=== PATIENT | female | born 1940 | race Two or more races ===

== ENCOUNTER 2018-04-25 06:07 | Inpatient (IN) | payer MEDICARE, OTHER ==
[~2018-04-25] VITALS: Ht 162.6 cm; Wt 73.5 kg
--- NOTE | 2018-04-25 06:10 | NUR ---
Pt bib LAFD d/t dizziness, N/V. Pt lives at home with daughter and son-in-law, has been getting chemo x 18 months for ovarian CA. pt has hx of DM and HTN. She is A, O/4, moves extremities with some assistance, breathing spontaneously to RA. Appears anxious at this time, teary eyed statting "I am no good." Evaluated by Dr. Teague and BS with orders.
[2018-04-25] MEDS ORDERED: ONDANSETRON HCL/PF 4 MG/2 ML VIAL ONE (06:28)
[2018-04-25] MEDS ORDERED: ACETAMINOPHEN 325 MG TABLET ONE (06:29)
[2018-04-25] MEDS ORDERED: IV NS 0.9% 1,000 ML BAG IV ONE ×2 (06:30)
[2018-04-25] MEDS ORDERED: ONDANSETRON HCL/PF 4 MG/2 ML VIAL IVP ONE (06:30)
[2018-04-25] MEDS ORDERED: ACETAMINOPHEN 325 MG TABLET PO ONE (06:30)
--- NOTE | 2018-04-25 06:30 | NUR ---
IV g20 left lower FA started, labs drawn, IV fluids initiated.
[2018-04-25 06:47] LABS: BASOPHILS % (AUTO) 1.1 % (0.0-2.0); EOSINOPHILS % (AUTO) 1.2 % (0.0-6.0); HEMATOCRIT 29 % (33-45); HEMOGLOBIN 9.9 g/dL (11.5-14.8); LYMPHOCYTES # (AUTO) 0.4 /CMM (0.8-4.8); LYMPHOCYTES % (AUTO) 10.4 % (20.0-44.0); MEAN CORPUSCULAR HGB CONC 35 g/dl (31.0-36.0); MEAN CORPUSCULAR VOLUME 90 fL (82-100); MONOCYTES # (AUTO) 0.5 /CMM (0.1-1.30); MONOCYTES % (AUTO) 14.3 % (2.0-12.0); NEUTROPHILS # (AUTO) 2.6 /CMM (1.8-8.9); PLATELET COUNT (AUTO) 235 /CMM (150-450); RED BLOOD CELL COUNT(AUTO) 3.17 MIL/uL (4.0-5.2); WHITE BLOOD COUNT (AUTO) 3.6 K/uL (4.3-11.0)
--- NOTE | 2018-04-25 06:50 | NUR ---
Pt transported to Radiology for CT Head
[2018-04-25 06:58] LABS: CALCIUM, SERUM 9.1 mg/dL (8.5-10.1); CARBON DIOXIDE 22 mmol/L (21-32); CHLORIDE 101 mmol/L (98-107); CREATININE 0.8 mg/dL (0.6-1.3); GLUCOSE 268 mg/dL (74-106); POTASSIUM 4.1 mmol/L (3.5-5.1); SODIUM SERUM 137 mmol/L (136-145); UREA NITROGEN, BLOOD 10 mg/dL (7-18)
--- NOTE | 2018-04-25 07:05 | NUR ---
pt came back from Radiology, family in room
[2018-04-25 07:08] LABS: APPEARANCE,URINE CLEAR (CLEAR); BILIRUBIN,URINE NEGATIVE (NEGATIVE); BLOOD, URINE NEGATIVE Ery/uL (NEGATIVE); COLOR,URINE YELLOW (YELLOW); KETONES,URINE 1+ (NEGATIVE); LEUKOCYTE ESTERASE ,URINE NEGATIVE (NEGATIVE); NITRITE, URINE NEGATIVE (NEGATIVE); PROTEIN,URINE NEGATIVE (NEGATIVE); UGLUCOSE NEGATIVE (NEGATIVE)
[2018-04-25 07:14] LABS: ALANINE AMINOTRANSFERASE 15 U/L (12-78); ALBUMIN 2.8 g/dL (3.4-5.0); ALKALINE PHOSPHATASE 69 U/L (46-116); ASPARTATE AMINOTRANSFERASE 23 U/L (15-37); BILIRUBIN,DIRECT 0.2 mg/dL (0.0-0.2); BILIRUBIN,TOTAL 0.6 mg/dL (0.2-1.0)
--- NOTE | 2018-04-25 07:25 | NUR ---
Pt states she feels better, family at BS. Report given to CHARITY Álvarez, for JANIS
--- NOTE | 2018-04-25 07:40 | NUR ---
RECEIVED PT FROM CHARITY PERALTA FOR JANIS, PT IS AOX4 ARMMIKEN SPEAKING, NOT IN RESPIRATORY DISTRESS, V/S STABLE, KEPT RESTED AND COMFORTABLE, WILL CONTINUE TO MONITOR.
[2018-04-25] MEDS ORDERED: CEFEPIME 1 GM in IV D5W 50 ML IV ONE (08:00)
[2018-04-25] MEDS ORDERED: VANCOMYCIN 1 GM in IV D5W 250 ML IV ONE (08:00)
--- NOTE | 2018-04-25 08:06 | NUR ---
PANEL ON-CALL PAGED
[2018-04-25] MEDS ORDERED: INSU100I4 SQ (09:39)
[2018-04-25] MEDS ORDERED: ALPR0.5T8 PO (09:39)
[2018-04-25] MEDS ORDERED: INSU100I26 SQ (09:39)
[2018-04-25] MEDS ORDERED: CLON0.2T PO (09:39)
[2018-04-25] MEDS ORDERED: TRAM50TA2 PO (09:39)
[2018-04-25] MEDS ORDERED: OMEP20CA10 PO (09:39)
--- NOTE | 2018-04-25 09:50 | NUR ---
GIVE REPORT TO CHARITY ALVAREZ FOR JANIS, IV FLUID AND ANTIBIOTIC STILL INFUSING, PT IS AOX4, NOT IN RESPIRATORY DISTRESS, KEPT RESTED AND COMFORTABLE.
--- NOTE | 2018-04-25 10:00 | NUR ---
MS RN RECEIVED ON BED,AWAKE,ALERT,ORIENTED X 3,SWEDISH SPEAKING ONLY,NOT IN ANY FORM OF DISTRESS,RESPIRATIONS EVEN AND UNLABORED,NO SOB NOTED, LUNGS ARE CLEAR,ABDOMEN SOFT,POSITIVE BOWEL SOUNDS,DENIES PAIN A THIS TIME,WILL MONITOR PATIENT'S CONDITION.
[2018-04-25 10:30] VITALS: BP 142/65
--- NOTE | 2018-04-25 11:30 | NUR ---
MS RN PAGED KRISHAN ANDERSON FOR ORDERS, WILL PUT JUST FEED PATIENT RIGHT NOW.
[2018-04-25 12:00] VITALS: BP 125/69
[2018-04-25 16:00] VITALS: BP 144/71
--- NOTE | 2018-04-25 17:00 | NUR ---
MS CHARITY NICKERSON CAME TO SEE PATIENT,NO ORDERS YET.
--- NOTE | 2018-04-25 18:25 | NUR ---
MS RN TEXT KRISHAN AGAIN FOR ORDERS.
--- NOTE | 2018-04-25 18:40 | NUR ---
MS RN PATIENT HAS FEVER 100.2, TEXT KRISHAN FOR ORDERS, SAID THAT HE IS WORKING ON IT.
--- NOTE | 2018-04-25 19:46 | NUR ---
CUSTOMER LOGISTICS MANAGER NOTE: RECEIVED PT IN STABLE CONDITION WITH VS STABLE. A&O X4 GREEK SPEAKING. SON WAS AT BEDSIDE TO TRANSLATE. SAFETY MEASURES IN PLACE: BED IN LOWEST POSITION, UPPER BED RAILS UP X2, AND CALL LIGHT WITHIN REACH. STILL WAITING FOR ORDERS FROM MD, WILL F/U AND CONT. TO MONITOR PT.
[2018-04-25 20:00] VITALS: BP 132/54
[2018-04-25] MEDS ORDERED: TRAMADOL HCL 50 MG TABLET PO PRN (20:00)
[2018-04-25] MEDS ORDERED: Z GUARD REMEDY 2 OZ OINT TP PRN (20:00)
[2018-04-25] MEDS ORDERED: ZOLPIDEM TARTRATE 5 MG TABLET PO PRN (20:00)
[2018-04-25] MEDS ORDERED: DEXTROSE 50%-WATER 50 ML DISP.SYRIN IV PRN (20:00)
[2018-04-25] MEDS ORDERED: ONDANSETRON HCL/PF 4 MG/2 ML VIAL IVP PRN (20:00)
[2018-04-25] MEDS ORDERED: HYDROCODONE/APAP 10/325MG 1 EA TABLET PO PRN (20:00)
[2018-04-25] MEDS ORDERED: ALPRAZOLAM 0.5 MG TABLET PO PRN (20:00)
[2018-04-25] MEDS ORDERED: FEE PK DOSING 1 MIN EA MC ONE (20:17)
[2018-04-25] MEDS: IV NS 0.9% 1,000 ML IV PRN (20:30)
[2018-04-25] MEDS: ACETAMINOPHEN 325 MG TABLET PO PRN (20:31)
[2018-04-25] MEDS: CEFTRIAXONE 1 G in IV D5W 50 ML IV SCH (20:31)
--- NOTE | 2018-04-25 20:31 | NUR ---
MS RN NOTE TYLENOL 650 MG GIVEN FOR FEVER 101.2. NO N/V, NO SOB OR DISTRESS, NO PAIN. WILL CONT. TO MONITOR.
[2018-04-25] MEDS: FLUCONAZOLE IN NS 100 MG in PREMIX 1 EA IV SCH ×2 (21:40)
[2018-04-25] MEDS: BLOOD SUGAR DIAGNOSTIC 1 EACH STRIP IN SCH (22:12)
[2018-04-25] MEDS ORDERED: INSULIN REGULAR, HUMAN 100 UNIT/ML 3 ML VIAL ONE (22:26)
[2018-04-25] MEDS: INSULIN REGULAR, HUMAN 100 UNIT/ML 3 ML VIAL SQ PRN (22:30)
[2018-04-26] VITALS (7 sets, daily range): BP systolic 117–155; BP diastolic 59–78
--- NOTE | 2018-04-26 00:02 | NUR ---
RN NOTES PT. IS COMPLAINING OF CONSTIPATION, GOT AN ORDER FROM ANDRÉS HILL-RUSSEL TO GIVE MOM 30ML PO PRN , ORDER NOTED AND CARRIED OUT
[2018-04-26] MEDS ORDERED: MAGNESIUM HYDROXIDE 30 ML UDC PO PRN (00:30)
[2018-04-26] MEDS: VANCOMYCIN 0.75 GM in IV D5W 250 ML IV SCH ×2 (02:27→21:39)
--- NOTE | 2018-04-26 06:26 | NUR ---
JAVA SECURITY ENGINEER CLOSING NOTE PT. IN STABLE CONDITION, RESTING IN BED. A&O X4 UNDERSTANDS SLOVENIAN. ALL VS STABLE WITH NO FEVER NOTED. NO SIGNS OF SOB OR DISTRESS. CURRENTLY SINUS TACH 104. IV L AC #20 PATENT AND INTACT RUNNING NS @75 ML/HR. BED REMAINS IN LOWEST POSITION AND LOCKED, WITH UPPER BED RAILS UP X2, AND CALL LIGHT WITHIN REACH. WILL ENDORSE TO NEXT SHIFT FOR JANIS.
[2018-04-26] MEDS: INSULIN REGULAR, HUMAN 100 UNIT/ML 3 ML VIAL SQ PRN ×2 (06:33→21:55)
[2018-04-26] MEDS: BLOOD SUGAR DIAGNOSTIC 1 EACH STRIP IN SCH ×4 (06:37→21:51)
[2018-04-26 06:46] LABS: EOSINOPHILS % (AUTO) 1.2 % (0.0-6.0); HEMATOCRIT 28 % (33-45); HEMOGLOBIN 9.5 g/dL (11.5-14.8); LYMPHOCYTES # (AUTO) 0.6 /CMM (0.8-4.8); LYMPHOCYTES % (AUTO) 23.7 % (20.0-44.0); MEAN CORPUSCULAR HGB CONC 34 g/dl (31.0-36.0); MEAN CORPUSCULAR VOLUME 90 fL (82-100); MONOCYTES # (AUTO) 0.5 /CMM (0.1-1.30); MONOCYTES % (AUTO) 17.9 % (2.0-12.0); NEUTROPHILS # (AUTO) 1.5 /CMM (1.8-8.9); NEUTROPHILS % (AUTO) 56.2 % (43.0-81.0); PLATELET COUNT (AUTO) 242 /CMM (150-450); RED BLOOD CELL COUNT(AUTO) 3.08 MIL/uL (4.0-5.2); WHITE BLOOD COUNT (AUTO) 2.7 K/uL (4.3-11.0)
[2018-04-26 07:04] LABS: ALANINE AMINOTRANSFERASE 12 U/L (12-78); ALBUMIN 2.6 g/dL (3.4-5.0); ALKALINE PHOSPHATASE 61 U/L (46-116); ASPARTATE AMINOTRANSFERASE 19 U/L (15-37); BILIRUBIN,TOTAL 0.4 mg/dL (0.2-1.0); CALCIUM, SERUM 9.1 mg/dL (8.5-10.1); CARBON DIOXIDE 27 mmol/L (21-32); CHLORIDE 103 mmol/L (98-107); CREATININE 0.6 mg/dL (0.6-1.3); GLUCOSE 193 mg/dL (74-106); MAGNESIUM 1.6 mg/dL (1.8-2.4); PHOSPHORUS 3.2 mg/dL (2.5-4.9); POTASSIUM 3.4 mmol/L (3.5-5.1); SODIUM SERUM 140 mmol/L (136-145); TOTAL PROTEIN, SERUM 6.4 g/dL (6.4-8.2); UREA NITROGEN, BLOOD 5 mg/dL (7-18)
[2018-04-26 07:18] LABS: CHOLESTEROL 202 mg/dL (<200); HDL CHOLESTEROL 21 mg/dL (40-60); LDL 136 mg/dL (0-99); THYROID STIMULATING HORMONE 0.885 uIU/mL (0.358-3.74); TRIGLYCERIDES 202 mg/dL (30-150)
--- NOTE | 2018-04-26 07:35 | NUR ---
MS/RN Patient received Patient received from blood donor recruiter. Sleeping soundly at this time, appears in no distress or discomfort. Call light within reach, safety measures in place. Will continue to monitor and ensure safety.
[2018-04-26 07:37] LABS: EOSINOPHILS % (MANUAL) 1 % (0-4); LYMPHOCYTES % (MANUAL) 22 % (16-48); MONOCYTES % (MANUAL) 8 % (0-11.0); NEUTROPHILS % (MANUAL) 69 (42-76)
[2018-04-26 07:40] LABS: IRON, SERUM 32 ug/dl (50-175); TOTAL IRON BINDING CAPACITY 179 ug/dl (250-450)
[2018-04-26] MEDS: PANTOPRAZOLE 40 MG TABLET.DR PO SCH (08:13)
[2018-04-26] MEDS: CLONIDINE HCL 0.1 MG TABLET PO SCH ×2 (08:14→16:40)
[2018-04-26] MEDS: INSULIN ASPART/LISPRO 100 UNIT/ML CARTRIDGE SQ SCH ×2 (08:19→12:15)
--- NOTE | 2018-04-26 10:00 | NUR ---
MS/RN Labs reviewed Morning labs reviewed: -WBC 2.7 -K+ 3.4 - replaced. -Mag 1.6 - replaced.
--- NOTE | 2018-04-26 10:30 | NUR ---
MS/RN S/B PT Seen by PT - able to ambulate in hallway using walker with standby assist only.
--- NOTE | 2018-04-26 11:00 | NUR ---
MS/RN S/B Dr Grubbs Seen by Dr Grubbs - continue with current treatemnt, for possible discharge tomorrow.
[2018-04-26] MEDS ORDERED: POTASSIUM CHLORIDE 20 MEQ TAB.PRT.SR PO SCH (11:30)
[2018-04-26] MEDS: IV NS 0.9% 1,000 ML IV PRN (12:03)
[2018-04-26] MEDS: Magnesium 1GM/D5W 100ML PREMIX 100 ML IV SCH ×2 (12:03→12:24)
--- NOTE | 2018-04-26 14:36 | NUR ---
MS/RN Rounds Patient resting comfortably at th is time, no complaints of any pain.
[2018-04-26] MEDS: INSULIN GLARGINE, 100 UNIT/ML CARTRIDGE SQ SCH (16:47)
--- NOTE | 2018-04-26 18:05 | NUR ---
MS/RN End note Patient remains in stable condition. Seen by Dr Velásquez - need to obtain medical records from Dr Sánchez at [facility] tomorrow. Need to collect stool for OB. Will endorse to night shift supervisor.
--- NOTE | 2018-04-26 19:41 | NUR ---
MS RN NOTE PT IN STABLE CONDITION, VS STABLE NO FEVER NOTED. NO SOB OR DISTRESS NOTED. PT. MAORI SPEAKING BUT UNDERSTANDS IRISH. DAUGHTER AT BEDSIDE. ALL NEEDS CURRENTLY MET WITH SAFETY MEASURES IN PLACE. BED IN LOCKED/ LOWEST POSITION, WITH UPPER BED RAILS UP X2, AND CALL LIGHT WITHIN REACH. WILL CONT TO MONITOR PATIENT.
[2018-04-26] MEDS: CEFTRIAXONE 1 G in IV D5W 50 ML IV SCH (19:50)
[2018-04-26] MEDS: ACETAMINOPHEN 325 MG TABLET PO PRN (20:12)
--- NOTE | 2018-04-26 20:12 | NUR ---
MS RN NOTE TYLENOL 650 MG GIVEN FOR FEVER 99.2. WILL CONT TO MONITOR PT.
[2018-04-26] MEDS: FLUCONAZOLE IN NS 100 MG in PREMIX 1 EA IV SCH ×2 (20:34)
[2018-04-27 04:00] VITALS: BP 156/78
[2018-04-27] MEDS: ACETAMINOPHEN 325 MG TABLET PO PRN ×2 (06:13→15:53)
--- NOTE | 2018-04-27 06:32 | NUR ---
MS RN NOTE TYLENOL 650 MG GIVEN FOR FEVER 102. COOLING MEASURES ALSO STARTED. WILL CONT TO MONITOR PT.
--- NOTE | 2018-04-27 06:32 | NUR ---
MS RN NOTE PT. REMAINS IN STABLE CONDITION WITH NO SIGNS OF SOB OR DISTRESS. PT IV PATENT AND INTACT WITH NS 75 ML/HR RUNNING WELL. STILL WAITING FOR BM FOR STOOL OB. WILL ENDORSE TO NEXT SHIFT. ALL SAFETY MEASURES IN PLACE. WITH BED IN LOWEST POSITION, UPPER BED RAILS UP X2, AND CALL LIGHT WITHIN REACH.
[2018-04-27] MEDS: BLOOD SUGAR DIAGNOSTIC 1 EACH STRIP IN SCH ×4 (06:37→21:37)
[2018-04-27] MEDS: INSULIN REGULAR, HUMAN 100 UNIT/ML 3 ML VIAL SQ PRN ×3 (06:41→21:45)
--- NOTE | 2018-04-27 07:10 | NUR ---
RN OPENING NOTES RECEIVED PATIENT IN BED RESTING. A/OX3, ABLE TO MAKE NEEDS KNOWN. NO ACUTE DISTRESS, NO SOB. DENIED PAIN OR DISCOMFORT AT THE MOMENT. IV SITE INTACT AND PATENT. KEPT PATIENT SAFE AND COMFORTABLE. BED IN LOW/LOCKED POSITION, SIDERAILS UPX2, CALL LIGHT IN REACH. WILL CONTINUE TO MONIOTR ACCORDINGLY.
[2018-04-27 07:45] LABS: CALCIUM, SERUM 8.7 mg/dL (8.5-10.1); CARBON DIOXIDE 26 mmol/L (21-32); CHLORIDE 100 mmol/L (98-107); CREATININE 0.8 mg/dL (0.6-1.3); GLUCOSE 196 mg/dL (74-106); MAGNESIUM 1.7 mg/dL (1.8-2.4); POTASSIUM 3.7 mmol/L (3.5-5.1); SODIUM SERUM 138 mmol/L (136-145); UREA NITROGEN, BLOOD 5 mg/dL (7-18)
[2018-04-27 08:00] VITALS: BP 136/53
[2018-04-27] MEDS: INSULIN ASPART/LISPRO 100 UNIT/ML CARTRIDGE SQ SCH ×2 (08:43→13:45)
[2018-04-27] MEDS: CLONIDINE HCL 0.1 MG TABLET PO SCH ×2 (08:45→18:26)
[2018-04-27] MEDS: PANTOPRAZOLE 40 MG TABLET.DR PO SCH (08:45)
[2018-04-27] MEDS: IV NS 0.9% 1,000 ML IV PRN ×2 (08:50→21:46)
[2018-04-27] MEDS: Magnesium 1GM/D5W 100ML PREMIX 100 ML IV SCH ×2 (10:32→11:40)
--- NOTE | 2018-04-27 15:53 | NUR ---
TEMP= 100.8, TYLENOL 650 GIVEN ORDERED AND COOLING MEASURES DONE
[2018-04-27 16:00] VITALS: BP 151/59
--- NOTE | 2018-04-27 17:00 | NUR ---
TEMP=98.4
[2018-04-27 18:18] LABS: EOSINOPHILS % (AUTO) 1.3 % (0.0-6.0); HEMATOCRIT 30 % (33-45); HEMOGLOBIN 10.1 g/dL (11.5-14.8); LYMPHOCYTES # (AUTO) 0.6 /CMM (0.8-4.8); LYMPHOCYTES % (AUTO) 17.6 % (20.0-44.0); MEAN CORPUSCULAR HGB CONC 33 g/dl (31.0-36.0); MEAN CORPUSCULAR VOLUME 92 fL (82-100); MONOCYTES # (AUTO) 0.4 /CMM (0.1-1.30); MONOCYTES % (AUTO) 12.8 % (2.0-12.0); NEUTROPHILS # (AUTO) 2.2 /CMM (1.8-8.9); NEUTROPHILS % (AUTO) 67.3 % (43.0-81.0); PLATELET COUNT (AUTO) 242 /CMM (150-450); RED BLOOD CELL COUNT(AUTO) 3.28 MIL/uL (4.0-5.2); WHITE BLOOD COUNT (AUTO) 3.2 K/uL (4.3-11.0)
[2018-04-27] MEDS: VANCOMYCIN 0.75 GM in IV D5W 250 ML IV SCH (18:23)
[2018-04-27] MEDS: INSULIN GLARGINE, 100 UNIT/ML CARTRIDGE SQ SCH (18:36)
[2018-04-27 19:22] LABS: BAND % (MANUAL) 4 % (0.0-5.0); LYMPHOCYTES % (MANUAL) 8 % (16-48); MONOCYTES % (MANUAL) 8 % (0-11.0); NEUTROPHILS % (MANUAL) 80 (42-76)
--- NOTE | 2018-04-27 19:30 | NUR ---
RN CLOSING NOTES PATIENT IN STABLE CONDITION. ALL NEEDS ATTENDED AND PROVIDED. ALL DUE MEDICATIONS ADMINISTERED ORDERED. KEPT PATIENT SAFE AND COMFORTABLE. BED IN LOW/LOCKED POSITION, SIDERAILS UPX2, CALL LIGHT IN REACH. ENDORSED TO NIGHT RN FOR JANIS.
--- NOTE | 2018-04-27 19:50 | NUR ---
SOCIAL SCIENCES LECTURER NOTE: PATIENT RESTING IN BED, NO ACUTE DISTRESS NOTED. BREATHING EVEN AND UNLABORED, NO SOB NOTED. IV TO LEFT WRIST IN PLACE, INFUSING NS AT 75ML/HR. NO S/S OF HYPER/HYPOGLYCEMIA NOTED. BED LOCKED AND IN LOWEST POSITION, CALL LIGHT IN REACH. WILL CONTINUE TO MONITOR.
[2018-04-27 20:00] VITALS: BP 147/64
[2018-04-27] MEDS: CEFTRIAXONE 1 G in IV D5W 50 ML IV SCH (20:59)
[2018-04-27] MEDS: FLUCONAZOLE IN NS 100 MG in PREMIX 1 EA IV SCH ×2 (21:37)
--- NOTE | 2018-04-27 21:45 | NUR ---
MS RN NOTE: PATIENT BLOOD SUGAR LEVEL 241MG/DL, PATIENT TO RECEIVE 4 UNITS OF INSULIN PER SLIDING SCALE, NO S/S OF HYPER/HYPOGLYCEMIA NOTED. WILL CONTINUE TO MONITOR.
--- NOTE | 2018-04-27 23:00 | NUR ---
MS RN NOTE: PATIENT IV TO LEFT WRIST LEAKING, NEW IV STARTED TO RFA #22 WITH GOOD BLOOD RETURN. IV TO LEFT WRIST REMOVED, COVERED WITH GAUZE, PRESSURE APPLIED, AND SECURED WITH TAPE. WILL CONTINUE TO MONITOR.
[2018-04-28] MEDS: VANCOMYCIN 0.75 GM in IV D5W 250 ML IV SCH ×2 (06:00→16:18)
[2018-04-28] MEDS: ACETAMINOPHEN 325 MG TABLET PO PRN ×2 (06:15→16:18)
--- NOTE | 2018-04-28 06:50 | NUR ---
MS RN NOTE: PATIENT RESTING IN BED, NO ACUTE DISTRESS NOTED. BREATHING EVEN AND UNLABORED, NO SOB NOTED. IV TO RFA IN PLACE, INFUSING NS AT 75ML/HR. PATIENT BLOOD SUGAR LEVEL 169MG/DL, TO RECEIVE 3 UNITS PER SLIDING SCALE, NO S/S OF HYPER/HYPOGLYCEMIA NOTED. BED LOCKED AND IN LOWEST POSITION, CALL LIGHT IN REACH. WILL ENDORSE TO DAY NURSE TO CONTINUE WITH PLAN OF CARE.
[2018-04-28] MEDS: BLOOD SUGAR DIAGNOSTIC 1 EACH STRIP IN SCH ×4 (07:30→22:03)
[2018-04-28] MEDS: INSULIN REGULAR, HUMAN 100 UNIT/ML 3 ML VIAL SQ PRN ×4 (07:31→21:49)
[2018-04-28] MEDS: INSULIN ASPART/LISPRO 100 UNIT/ML CARTRIDGE SQ SCH ×2 (07:34→12:22)
[2018-04-28 07:52] LABS: BASOPHILS % (AUTO) 1.2 % (0.0-2.0); EOSINOPHILS % (AUTO) 1.5 % (0.0-6.0); HEMATOCRIT 28 % (33-45); HEMOGLOBIN 9.5 g/dL (11.5-14.8); LYMPHOCYTES # (AUTO) 0.6 /CMM (0.8-4.8); LYMPHOCYTES % (AUTO) 18.8 % (20.0-44.0); MEAN CORPUSCULAR HGB CONC 34 g/dl (31.0-36.0); MEAN CORPUSCULAR VOLUME 89 fL (82-100); MONOCYTES # (AUTO) 0.4 /CMM (0.1-1.30); MONOCYTES % (AUTO) 13.6 % (2.0-12.0); NEUTROPHILS % (AUTO) 64.9 % (43.0-81.0); PLATELET COUNT (AUTO) 240 /CMM (150-450); RED BLOOD CELL COUNT(AUTO) 3.08 MIL/uL (4.0-5.2); WHITE BLOOD COUNT (AUTO) 3.1 K/uL (4.3-11.0)
--- NOTE | 2018-04-28 07:57 | NUR ---
MS RN Opening Note Patient received awake and sitting in bed. Alert and oriented x4. Primarily Czech speaking. Able to make needs known, no complaints of pain or signs of distress at this time. Respirations even and unlabored, saturating on room air. Peripheral IV to the right forearm 22 gauge, intact, patent and running NS at 75 mL/hr. Safety and Fall precautions in place: bed in lowest and locked position, side rails up x2, call light and personal possessions within reach. Patient verbalized understanding of safety measures. Will continue to monitor and intervene as needed.
[2018-04-28 07:59] VITALS: BP 148/82
[2018-04-28 08:00] VITALS: BP 148/82
[2018-04-28 08:05] LABS: CARBON DIOXIDE 26 mmol/L (21-32); CHLORIDE 99 mmol/L (98-107); CREATININE 0.7 mg/dL (0.6-1.3); GLUCOSE 229 mg/dL (74-106); MAGNESIUM 1.7 mg/dL (1.8-2.4); PHOSPHORUS 2.8 mg/dL (2.5-4.9); POTASSIUM 3.7 mmol/L (3.5-5.1); SODIUM SERUM 135 mmol/L (136-145); UREA NITROGEN, BLOOD 5 mg/dL (7-18)
[2018-04-28] MEDS: PANTOPRAZOLE 40 MG TABLET.DR PO SCH (08:17)
[2018-04-28] MEDS: FERROUS SULFATE (325 MG) 325 MG/TAB TABLET PO SCH ×2 (08:17→16:17)
[2018-04-28] MEDS: CLONIDINE HCL 0.1 MG TABLET PO SCH ×2 (08:18→16:18)
[2018-04-28] MEDS ORDERED: Magnesium 1GM/D5W 100ML PREMIX 100 ML IV SCH (09:49)
[2018-04-28] MEDS: Magnesium 1GM/D5W 100ML PREMIX 100 ML IV SCH ×2 (10:48→12:08)
[2018-04-28] MEDS: IV NS 0.9% 1,000 ML IV PRN (10:55)
[2018-04-28 16:00] VITALS: BP 147/69
[2018-04-28] MEDS: INSULIN GLARGINE, 100 UNIT/ML CARTRIDGE SQ SCH (17:21)
--- NOTE | 2018-04-28 18:26 | NUR ---
MS RN Closing Note Patient currently awake and sitting in bed. Alert and oriented x4. Primarily Welsh speaking, family visits bedside and able to assist in translation. Able to make needs known, no complaints of pain or signs of distress at this time. Respirations even and unlabored, saturating on room air. Peripheral IV to the right forearm 22 gauge, intact, patent and running NS at 75 mL/hr. AM Mag of 1.7 replaced with 2 grams IV piggyback. All due medications given as ordered. Patient states she has follow-up appointment with outpatient oncologist Monday, 04/30. Vital signs monitored for signs and symptoms of fever, 0800 T of 99.1 and 1600 of 99.7, MD aware. Safety and Fall precautions in place: bed in lowest and locked position, side rails up x2, call light and personal possessions within reach. Patient verbalized understanding of safety measures. Will endorse to shift mgr for continuity of care.
--- NOTE | 2018-04-28 19:40 | NUR ---
MS RN NOTE RECEIVED PT IN STABLE CONDITION A&OX3 WITH NO SIGNS OF DISTRESS/ SOB. ALL VS STABLE. IVF FLUIDS RUNNING NS AT 75 ML/HR. ALL SAFETY MEASURES IN PLACE. BED LOCKED IN LOWEST POSITION, WITH UPPER BED RAILS UP X2, AND CALL LIGHT WITHIN REACH. WILL CONT. THROUGH THE NIGHT.
[2018-04-28 20:00] VITALS: BP 135/58
[2018-04-28] MEDS ORDERED: FLUCONAZOLE (100 MG) 100 MG TABLET PO SCH (20:00)
[2018-04-28] MEDS: CEFTRIAXONE 1 G in IV D5W 50 ML IV SCH (20:08)
--- NOTE | 2018-04-28 20:55 | NUR ---
MS RN NOTE CONTACTED ANDRÉS (RUSSEL) IN REGARDS TO TWO DICFLUCAN ORDERS FOR CLARIFICATION. LAW OFFICE MANAGER RETURNED CALL AND WILL CONTACT PHARMACY TO CLARIFY ORDER. AND LAW OFFICE MANAGER WILL RETURN CALL WITH ANSWER.
--- NOTE | 2018-04-28 21:10 | NUR ---
MS RN NOTE CLARIFICATION FROM ANDRÉS (RUSSEL) RECEIVED. NOTED AND CARRIED OUT.
[2018-04-29 04:46] LABS: BASOPHILS % (AUTO) 0.7 % (0.0-2.0); EOSINOPHILS % (AUTO) 1.3 % (0.0-6.0); HEMATOCRIT 30 % (33-45); LYMPHOCYTES # (AUTO) 0.6 /CMM (0.8-4.8); LYMPHOCYTES % (AUTO) 21.3 % (20.0-44.0); MEAN CORPUSCULAR HGB CONC 34 g/dl (31.0-36.0); MEAN CORPUSCULAR VOLUME 91 fL (82-100); MONOCYTES # (AUTO) 0.4 /CMM (0.1-1.30); NEUTROPHILS # (AUTO) 1.7 /CMM (1.8-8.9); NEUTROPHILS % (AUTO) 61.7 % (43.0-81.0); PLATELET COUNT (AUTO) 217 /CMM (150-450); RED BLOOD CELL COUNT(AUTO) 3.26 MIL/uL (4.0-5.2); WHITE BLOOD COUNT (AUTO) 2.8 K/uL (4.3-11.0)
[2018-04-29 04:52] LABS: CARBON DIOXIDE 28 mmol/L (21-32); CHLORIDE 101 mmol/L (98-107); CREATININE 0.7 mg/dL (0.6-1.3); GLUCOSE 196 mg/dL (74-106); MAGNESIUM 1.9 mg/dL (1.8-2.4); PHOSPHORUS 3.4 mg/dL (2.5-4.9); POTASSIUM 3.7 mmol/L (3.5-5.1); SODIUM SERUM 137 mmol/L (136-145); UREA NITROGEN, BLOOD 8 mg/dL (7-18)
[2018-04-29] MEDS: VANCOMYCIN 0.75 GM in IV D5W 250 ML IV SCH ×2 (05:43→17:00)
[2018-04-29] MEDS: ACETAMINOPHEN 325 MG TABLET PO PRN (05:50)
--- NOTE | 2018-04-29 06:00 | NUR ---
RN NOTES IV GOT INFILTRATED , NEW IV LINE INSERTED ON THE RIGHT FOREARM #22
--- NOTE | 2018-04-29 06:01 | NUR ---
MS RN NOTE PRN TYLENOL 650 MG GIVEN FOR MILD GENERALIZED PAIN.
--- NOTE | 2018-04-29 06:19 | NUR ---
MS RN NOTE PT IN STABLE CONDITION, RESTING IN BED. a&O X4. R FA IV CURRENTLY RUNNING VANCOMYCIN. PT TOLERATING WELL, INTACT AND PATENT. PT. GIVEN TYLENOL FOR MILD GENERALIZED PAIN AT 0550. ALL CURRENT NEEDS MET. BED LOCKED AND LOWEST POSITION, WITH CALL LIGHT WITHIN REACH. WILL ENDORSE TO NEXT SHIFT.
[2018-04-29] MEDS: INSULIN REGULAR, HUMAN 100 UNIT/ML 3 ML VIAL SQ PRN ×2 (06:30→17:46)
[2018-04-29] MEDS: BLOOD SUGAR DIAGNOSTIC 1 EACH STRIP IN SCH ×3 (06:31→17:00)
--- NOTE | 2018-04-29 07:30 | NUR ---
MS RN Opening Note Patient received awake and sitting in bed. Alert and oriented x4. Primarily Spanish speaking. Able to make needs known, no complaints of pain or signs of distress at this time. Respirations even and unlabored, saturating on room air. Newly placed peripheral IV to the right forearm 22 gauge, intact, patent and running NS at 75 mL/hr. Safety and Fall precautions in place: bed in lowest and locked position, side rails up x2, call light and personal possessions within reach. Patient verbalized understanding of safety measures. Family to visit bedside later this shift. Will continue to monitor and intervene as needed.
[2018-04-29 08:00] VITALS: BP 159/68
[2018-04-29 08:04] VITALS: BP 159/68
[2018-04-29] MEDS: PANTOPRAZOLE 40 MG TABLET.DR PO SCH (08:14)
[2018-04-29] MEDS: CLONIDINE HCL 0.1 MG TABLET PO SCH ×2 (08:14→16:59)
[2018-04-29] MEDS: FERROUS SULFATE (325 MG) 325 MG/TAB TABLET PO SCH ×2 (08:14→16:59)
[2018-04-29] MEDS: INSULIN ASPART/LISPRO 100 UNIT/ML CARTRIDGE SQ SCH ×2 (08:16→12:24)
[2018-04-29] MEDS: IV NS 0.9% 1,000 ML IV PRN (08:48)
[2018-04-29 16:00] VITALS: BP 143/73
[2018-04-29 16:59] VITALS: BP 143/73
[2018-04-29] MEDS: INSULIN GLARGINE, 100 UNIT/ML CARTRIDGE SQ SCH (17:57)
--- NOTE | 2018-04-29 18:30 | NUR ---
MS rn patient services Note Patient discharged to [facility] via wheelchair, accompanied by CRYS Santos and daughter, who will be transporting the patient home by private car. Medically stable, vital signs within baseline. Patient alert and oriented x 4. Primarily Cambodian speaking. Able to make needs known, no complaints of pain or signs of distress at this time. Respirations even and unlabored, saturating on room air. Ambulates with steady gait. Peripheral IV access to the right forearm removed, catheter intact. No signs or symptoms of infiltration or phlebitis noted, no bleeding at the site of insertion. Removed ID band from patient. Patient refused skin assessment and discharge photos to be taken at this time, anxious to be discharged home. Patient left with all personal belongings and clothing, acknowledged and signed belongings form with copy provided to patient and placed in chart. Discharge instructions, education and Exitcare provided to both patient with family member present, verbalized understanding of discharge instructions and follow-up instructions. Acknowledged understanding of instructions and education by signings discharge form, copy provided to patient and placed in chart.
== END 2018-04-29 18:30 | disposition home health service (06) | DRG 872 ==
LOC: ER 06:09 → MED 09:57 → TELE 16:49 → MED 04-26 10:44
PROVIDERS: ADMIT Nurse Practitioner Acute Care; ATTEND Nurse Practitioner Acute Care
DX: A41.9 Sepsis, unspecified organism (principal); C56.9 Malignant neoplasm of unspecified ovary; E11.9 Type 2 diabetes mellitus without complications; E88.09 Other disorders of plasma-protein metabolism, not elsewhere classified; I10 Essential (primary) hypertension; D72.819 Decreased white blood cell count, unspecified; D63.8 Anemia in other chronic diseases classified elsewhere; E61.1 Iron deficiency
CPT/HCPCS: 36415; 70450-TC; 71045-TC; 80048-TC; 80053-TC; 80061-TC; 80076-TC; 80202-TC; 81000-TC; 82728-TC; 82962-TC; 83540-TC; 83605-TC; 83735-TC; 84100-TC; 84443-TC; 84484-TC; 85025-TC; 85045-TC; 85652-TC; 85730-TC; 87040-TC; 87081-TC; 87086-TC; 87400; 93307-TC; A4216; A4606; G0378; J0692; J0696; J1450; J1815; J2405; J3370; J3475; J7030; J7040; J7060; Z7610